=== PATIENT | male | born 1945 | race Caucasian/White ===

== ENCOUNTER 2016-12-04 13:25 | Emergency (ER) | payer MEDICARE, OTHER ==
[2016-12-04 13:49] LABS: BASOPHIL# 0.1 X 10^3uL (0.0-0.1); EOSINOPHILS 0.9 % (0.0-6.0); EOSINOPHILS# 0.1 X 10^3uL (0.0-0.4); HEMATOCRIT 52.7 % (42.0-54.0); HEMOGLOBIN 17.9 g/dL (14.0-18.0); LYMPHOCYTES 10.2 % (20.0-40.0); LYMPHOCYTES# 1.3 X 10^3uL (0.8-3.8); MEAN CELL VOLUME 94.8 fL (80.0-100.0); MEAN CORPUSCULAR HEMOGLOBIN 32.2 pg (29.0-35.0); MEAN PLATELET VOLUME 8.6 fL (7.4-10.4); NEUTROPHILS 79.9 % (54.0-75.0); NEUTROPHILS# 10.5 X 10^3uL (2.6-6.7); PLATELET COUNT 126 X 10^3uL (130-440); RED BLOOD COUNT 5.55 X 10^6uL (4.20-6.10); RED CELL DISTRIBUTION WIDTH 13.4 % (11.5-14.5)
[2016-12-04 13:55] LABS: BLOOD UREA NITROGEN 29 mg/dL (9-20); CALCIUM 9.6 mg/dL (8.4-10.2); CHLORIDE 105 mmol/L (98-107); EST GLOMERULAR FILTRATION RATE > 60 mL/min; GLUCOSE 94 mg/dL (70-100); MAGNESIUM 2.3 mg/dL (1.6-2.3); POTASSIUM 4.5 mmol/L (3.5-5.1); SODIUM 140 mmol/L (137-145)
[2016-12-04 14:07] LABS: TROPONIN I < 0.012 ng/mL (0.00-0.034)
--- NOTE | 2016-12-04 14:12 | RADIOLOGY REPORT ---
HISTORY: Shortness of breath and chest pain. COMPARISON: None. FINDINGS: A single portable view of the chest was performed. The lungs are well inflated. There is coarse bilateral perihilar interstitial opacity, which may refl ect mild pulmonary edema or atypical/viral pneumonia. No focal consolidation is seen. There is no evidence of pleural effusion or pneumothorax. The heart is not enlarged. The bones appear unremarkable. IMPRESSION: Coarse bilateral perihilar interstitial opacities, most consistent with mild pulmonary edema. Differe ntial considerations include atypical/viral pneumonia. Correlation with patient's symptoms is recomme nded. Final Electronic Signature: This report was electronically signed by Tyshawn Lara MD on 12/05/19 17 2:10 PM. landry /
--- NOTE | 2016-12-04 14:28 | ER NURSING DOCUMENTATION ---
Nurse's Notes [facility] Name:Mindi Lamas Age:71 yrs Sex:Male :1945 Arrival Date:12/04/2016 Time:13:25 BedTrauma-C Private MD:Jasmeet Manrique Diagnosis:Chest Pain, Other;Dependent Edema Presentation: 12/04 13:36 Presenting complaint: Patient states: Pt. had chest pain 1-2/10 while walking around [facility] [place] downtown. Denies any other symptoms associated with the pain. Pt. has hx of stent x2. Pt. has not complaints at this time. Wants to be checked out. Transition of care: patient was not received from another setting of care. AIR CAT ACTIVATION no. Asprin Given Given in ED 325 mg po. Notified ED Physician of patient's arrival and CC Akin Greene notified. 13:36 Acuity: KATT 2 [facility] [place] 13:36 Method Of Arrival: Private Vehicle [facility] [place] Triage Assessment: 13:45 General: Appears in no apparent distress, well developed, well nourished, well groomed, mt1 Behavior is cooperative, pleasant. Pain: Denies pain. Cardiovascular: No deficits noted. Historical: - Allergies: Niacin; - Home Meds: 1. amiodarone 200 mg oral tab 1 tab once daily 2. nifedipine 30 mg oral tr24 1 tab twice a day 3. valsartan 160 mg oral tab 1 tab once daily 4. atorvastatin 20 mg oral tab 1 tab once daily 5. Lasix 40 mg oral tab 1 tab once daily 6. potassium chloride 10 mEq oral cpER daily 7. aspirin 81 mg oral tab 1 tab once daily 8. clonidine 0.1 mg oral Tb12 as needed 9. atenolol 25 mg oral tab 1 tab 2 times per day - PMHx: Coronary stents x2; Hypertension; CAD; ATRIAL FIB; - PSHx: Cholecysectomy; - Ebola Screening: : Patient negative for fever greater than or equal to 101.5 degrees Fahrenheit, and additional compatible Ebola Virus Disease symptoms. Patient denies exposure to infectious person. Patient denies travel to an Ebola-affected area in the 21 days before illness onset. No symptoms or risks identified at this time. . - Social history: Smoking status: Patient states former smoker of tobacco. Screenin:50 Infectious Disease Risk None. Abuse screen: Denies threats or abuse. Nutritional sc1 screening: No deficits noted. Assessment: 13:51 Cardiovascular: Edema. sc1 Vital Signs: 13:46 BP 169 / 85; Pulse 69; Resp 18; Pulse Ox 94% on R/A; sc1 14:00 BP 156 / 79 (auto/); sc1 14:01 Pulse 65 MON; Resp 19; Pulse Ox 92% ; sc1 14:27 BP 150 / 88; Pulse 72; Resp 18; Pulse Ox 94% on R/A; mt1 ED Course: 13:27 Patient arrived in ED. ama 13:27 Jasmeet Manrique MD is Private Physician. ama 13:31 EKG done. (by ED staff). Reviewed by Farzad Gerardo MD. tg 13:35 Farzad Gerardo MD is Attending Physician. 13:35 Inserted peripheral IV: 20 gauge in right antecubital area and blood collected. arc 13:36 Jessica Pérez, RN is Primary Nurse. sc1 13:40 Triage completed. sc1 13:46 Notified ED Physician of patient's arrival and chief complaint. Dr. Gerardo notified. Arm sc1 band placed on Bed in low position Call Light in Reach Gowned HOB Elevated Side rails up x2. EKG done per protocol. Labs ordered per protocol. X-ray ordered. 13:47 Inserted peripheral IV: 20 gauge in left antecubital area Missed attempts: 20 gauge X 1 arc in left antecubital area. 13:48 Port Xray Completed. ms 13:50 Valuables Remains with patient. phototypesetting equipment monitor on. Pulse ox on. NIBP on. mt1 14:19 Jasmeet Manrique MD is Referral Physician. 14:25 EKG attached [facility] [place] 14:26 Discontinued lock intact, bleeding controlled, pressure dressing applied, No sc1 redness/swelling at site. Administered Medications: 13:40 Drug: Aspirin 81 mg, 4 tabs, total of 324 mg - Aspirin 81 mg; Route: PO; mt1 14:25 Follow up: Response: No adverse reaction mt1 Outcome: 14:20 Discharge ordered by . 14:27 Discharged to home ambulatory. sc1 14:27 Condition: stable 14:27 Discharge instructions given to patient, Instructed on discharge instructions, follow up and referral plans. Demonstrated understanding of instructions. 14:28 Patient left the ED. sc1 06 10:58 Discharge F/U Call: Spoke with: patient. Overall Care on a scale of 1-10 with 10 tg being the best care, you rate our care as: Other comments: Feeling good, no issues, appreciative of care. Signatures: Ronnie Alejandra RN RN tg Jesisca Pérez RN RN sc1 Farzad Gerardo MD MD jm Strickland, Mary ms Averdick, Andrew, Reg Reg ama Chandrika Monreal, Reg Reg arc
--- NOTE | 2016-12-04 14:28 | ER PHYSICIAN DOCUMENTATION ---
Physician Documentation [facility] Name:Mindi Lamas Age:71 yrs Sex:Male :1945 Arrival Date:12/04/2016 Time:13:25 BedTrauma-C Private MD:Jasmeet Manrique EDAkinFarzad Disposition: 12/04/16 14:20 Discharged to Home/Self Care. Impression: Chest Pain, Other, Dependent Edema. - Condition is Good. - Discharge Instructions: PERIPHERAL EDEMA, Bilateral, Chest Pain - CHEST PAIN, Uncertain Cause. - Medical Reconciliation form form. - Follow up: Jasmeet Manrique MD; When: 4- 6 days; Reason: Recheck today's complaints. - Problem is new. - Symptoms have improved. HPI: 12/04 13:57 This 71 yrs old Male presents to ER via Private Vehicle with complaints of jm Chest Pain, Dizziness. 13:57 The patient or guardian reports chest pain that is located primarily in the anterior jm chest wall. Onset: 2 hour(s) ago. The pain does not radiate. There has been no movement of pain. Associated signs and symptoms: Pertinent positives: lightheadedness, Pertinent negatives: diaphoresis, shortness of breath. The chest pain is described as sharp. Duration: The patient or guardian reports multiple episodes, the episodes last approximately 3 second(s). Modifying factors: the symptoms are aggravated by nothing. Severity of pain: At its worst the pain was a 3 / 10. Risk factors for coronary artery disease include: This patient has known coronary artery disease. The patient has not experienced similar symptoms in the past. The patient has not recently seen a physician. 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 They came and went w/i minutes. Pt also had some double vision yesterday that lasted only 20 seconds. Pt thought he should get checked out as they are about to leave to drive up [employer] [place]. . Historical: - Allergies: Niacin; - Home Meds: 1. amiodarone 200 mg oral tab 1 tab once daily 2. nifedipine 30 mg oral tr24 1 tab twice a day 3. valsartan 160 mg oral tab 1 tab once daily 4. atorvastatin 20 mg oral tab 1 tab once daily 5. Lasix 40 mg oral tab 1 tab once daily 6. potassium chloride 10 mEq oral cpER daily 7. aspirin 81 mg oral tab 1 tab once daily 8. clonidine 0.1 mg oral Tb12 as needed 9. atenolol 25 mg oral tab 1 tab 2 times per day - PMHx: Coronary stents x2; Hypertension; CAD; ATRIAL FIB; - PSHx: Cholecysectomy; - Ebola Screening: : Patient negative for fever greater than or equal to 101.5 degrees Fahrenheit, and additional compatible Ebola Virus Disease symptoms. Patient denies exposure to infectious person. Patient denies travel to an Ebola-affected area in the 21 days before illness onset. No symptoms or risks identified at this time. . - Social history: Smoking status: Patient states former smoker of tobacco. ROS: 14:01 Constitutional: Negative for fever. 14:01 Eyes: Positive for visual disturbance. 14:01 ENT: Negative for sinus congestion, sinus pain, sore throat. 14:01 Cardiovascular: Positive for chest pain. 14:01 Respiratory: Negative for cough, shortness of breath. 14:01 Abdomen/GI: Negative for abdominal pain, nausea, vomiting. 14:01 MS/extremity: Negative for swelling, tenderness. 14:01 Neuro: Positive for dizziness, Negative for syncope, near syncope. 14:01 Psych: Negative for anxiety, depression, drug dependence, alcohol dependence. 14:01 All other systems are negative. Exam: 14:03 Constitutional: The patient appears alert, awake, comfortable. 14:03 Eyes: Periorbital structures: appear normal, Pupils: equal, round, and reactive to light and accomodation, Extraocular movements: intact throughout, Nystagmus: is not appreciated. 14:03 ENT: Mouth: is normal, Posterior pharynx: is normal. 14:03 Neck: Thyroid: appears normal, Trachea: is midline with no obvious abnormalities. 14:03 Chest/axilla: Exam negative for acute changes, Palpation: is normal. 14:03 Cardiovascular: Rate: normal, Rhythm: regular, Edema: 2+ edema to level of left midcalf and right midcalf. 14:03 Respiratory: Respirations: normal, Breath sounds: are normal. 14:03 Abdomen/GI: Bowel sounds: normal, Palpation: abdomen is soft and non-tender. 14:03 Musculoskeletal/extremity: DVT Exam: no pain, no appreciated bluish discoloration, no erythema, no increased warmth, swelling, Calves: are non-tender, have equal circumference. 14:03 Skin: Appearance: Color: pink, no rash present. 14:03 Neuro: Mentation: is normal, Memory: is normal. 14:03 Psych: Behavior/mood is pleasant, cooperative, Affect is calm. Vital Signs: 13:46 BP 169 / 85; Pulse 69; Resp 18; Pulse Ox 94% on R/A; sc1 14:00 BP 156 / 79 (auto/); sc1 14:01 Pulse 65 MON; Resp 19; Pulse Ox 92% ; sc1 14:27 BP 150 / 88; Pulse 72; Resp 18; Pulse Ox 94% on R/A; sc1 MDM: 13:27 Patient medically screened. 14:25 EKG attached [facility] [place] 14:31 Differential diagnosis: acute myocardial infarction, acute pericarditis, anxiety, chest jm wall pain, costochondritis, gastritis. Patient took aspirin in the Emergency Department. Data reviewed: vital signs, nurses notes, old medical records, lab test result(s), EKG, radiologic studies, and as a result, I will discharge patient. Test interpretation: by ED physician or midlevel provider: plain radiologic studies, ECG. Counseling: I had a detailed discussion with the patient and/or guardian regarding: the historical points, exam findings, and any diagnostic results supporting the discharge/admit diagnosis, lab results, radiology results, the need for outpatient follow up, with the patient's primary care provider, a adjunct philosophy faculty. ECG:. ED course: Pt's short few seconds of CP does not sound like angina or anything concerning, but entire CP w/u was done in this ED w no concerning findings. PT can f/u w Dr. Belcher again if needed. Double vision was also very short lived, to the point where I wouldn't call that a TIA. Pt has been adjusting some medication s recently, so this could have been due to bradycardia and/or arrythmia. Pt had no ectopy while in the ER. Pt feels comfortable w DC and will RTED if he experiences anymore CP's. . 12/04 13:59 Order name: PROTIME/INR; Complete Time: 14:10 EDMS 12/04 14:08 Order name: CBC AUTO DIF, MDIF/RMOR IF IND; Complete Time: 14:10 EDMS 12/04 14:08 Order name: BASIC METABOLIC PANEL; Complete Time: 14:10 [facility] 12/04 14:08 Order name: MAGNESIUM; Complete Time: 14:10 [facility] 12/04 14:08 Order name: TROPONIN I; Complete Time: 14:10 [facility] 12/04 14:14 Order name: CHEST; [place] [id number] [facility] 12/04 13:36 Order name: 12-lead EKG; Complete Time: 13:49 12/04 13:36 Order name: Iv Saline Lock; Complete Time: :49 12/04 13:36 Order name: Place Patient On Monitor; Complete Time: :49 12/04 13:36 Order name: Pulse Ox Continuous; Complete Time: :49 EC:31 Rhythm is regular. QRS [place] is Normal. VT interval is normal. QRS interval is normal. QT interval is normal. No Q waves. T waves are Normal. No ST changes noted. Dispensed Medications: 13:40 Drug: Aspirin 81 mg, 4 tabs, total of 324 mg - Aspirin 81 mg; Route: PO; nc1 14:25 Follow up: Response: No adverse reaction sc1 Signatures: Jessica Pérez, RN RN sc1 Farzad Gerardo MD MD
== END 2016-12-04 14:28 | disposition home or self-care (01) ==
LOC: ER 13:25
DX: R07.89 Other chest pain (principal); R60.0 Localized edema; R42 Dizziness and giddiness; H53.8 Other visual disturbances; I10 Essential (primary) hypertension; I25.10 Atherosclerotic heart disease of native coronary artery without angina pectoris; I48.91 Unspecified atrial fibrillation; Z95.5 Presence of coronary angioplasty implant and graft; Z79.82 Long term (current) use of aspirin; Z79.899 Other long term (current) drug therapy
CPT/HCPCS: 71010; 80048; 83735; 84484; 85025; 85610; 93005; 93010; 99285